=== PATIENT | male | born 1930 | race Caucasian/White ===

== ENCOUNTER 2017-01-12 11:55 | Inpatient (IN) | payer OTHER, BC ==
--- NOTE | 2017-01-12 12:50 | EDPHY ---
H & P Stated Complaint: blood diarrhea since 230am, not on blood thinners, not painful Time Seen by Provider: 01/12/17 12:44 HPI/ROS: CHIEF COMPLAINT: Rectal bleeding, dyspnea HISTORY OF PRESENT ILLNESS: The patient is an 86 y/o male, with a history of emphysema, complaining of rectal bleeding without pain onset around 03:00 this morning, about 10 hours ago. He woke with the urge to have a bowel movement and then had diarrhea that subsequently became bloody. Since then he's had multiple bouts of bright red blood per rectum. It is his impression that he might also be having diarrhea. He feels short of breath, intermittently dizzy, and dehydrated. He denies abdominal pain, chest pain. He does take Diclofenac, but he is unable to tell me why. No anticoagulants or other NSAIDs that he is aware of. He has never had a colonoscopy. REVIEW OF SYSTEMS:. A ten point review of systems was performed and is negative with the exception of the items mentioned in the HPI. - Personal History Current Tetanus/Diphtheria Vaccine: Yes Current Tetanus Diphtheria and Acellular Pertussis (TDAP): Yes - Medical/Surgical History PMH: PMH: 1. Hearing loss - uses hearing aids 2. Anxiety 3. Depression 4. Emphysema - home O2, neb 5. Hypertension 6. Right hip replacement 7. Cholecystectomy? Prior medical records reviewed including admission July 2016 for dyspnea. Hx Asthma: No Hx Chronic Respiratory Disease: Yes Hx Diabetes: No Hx Cardiac Disease: No Hx Renal Disease: No Hx Cirrhosis: No Hx Alcoholism: No Hx HIV/AIDS: No Hx Splenectomy or Spleen Trauma: No Other PMH: COPD. partial deafness - Social History Smoking Status: Former smoker Additional Social History: 2 oz of vodka every night. He lives independently. Daughter works nearby. Former smoker. - Physical Exam Exam: General Appearance: Alert. Vital signs reviewed. BP 99/73. Room air pulse ox 96%. Respiratory rate 16 at triage, higher than this at the time of my exam, around 20. Eyes: Pupils equal and round, no conjunctival injection, no discharge. Anicteric. ENT, Mouth: Mucous membranes are moist, no oropharyngeal erythema or edema. Hearing aids in place. Neck: No lymphadenopathy, supple. Trachea midline. Respiratory: Distant breath sounds with expiratory wheezes. Cardiovascular: Distant heart sounds. Regular rate and rhythm. Gastrointestinal: Abdomen is soft and nontender, no masses or organomegaly, bowel sounds normal. Rectal: Ernesto red blood on examining glove, nontender. No palpable masses. Skin: Warm and dry, no rashes on exposed skin, normal color. Healing ecchymosis on buttocks. Back: Nontender to palpation over the thoracolumbar spine. No CVAT. Extremities: No lower extremity edema, no calf tenderness or swelling. Neurological: Alert and oriented. Moving all four extremities easily and equally. Hard of hearing. Psychiatric: Normal affect. Constitutional: Initial Vital Signs Temperature (C) 36.5 C 01/12/17 12:00 Heart Rate 85 01/12/17 12:00 Respiratory Rate 16 01/12/17 12:00 Blood Pressure 99/73 L 01/12/17 12:00 O2 Sat (%) 96 01/12/17 12:00 O2 Delivery Mode Room Air Allergies/Adverse Reactions: No Known Allergies Allergy (Verified 08/26/16 05:16) Home Medications: Medication Instructions Recorded Acetamn/Diphenhydramine 500/25 1 each PO HS 08/26/16 [Tylenol PM (*)] Diclofenac Sodium [Voltaren-XR] 100 mg PO HS 08/26/16 Herbals/Supplements -Info Only 1 ea PO DAILY 08/26/16 Ipratropium/Albuterol [Duoneb (*)] 3 ml IH QID PRN 08/26/16 LORazepam [Ativan (*)] 1 mg PO BID PRN 08/26/16 guaiFENesin [Mucinex 600 MG (*)] 600 mg PO HS 08/26/16 Albuterol [Proventil Neb] 3 ml IH Q2HRS PRN #30 deyvial 08/29/16 Acetaminophen [Tylenol 325mg (*)] 325 mg PO DAILY 01/12/17 Doxazosin Mesylate [Cardura 1 MG 2 mg PO HS 01/12/17 (*)] Escitalopram Oxalate [Lexapro] 20 mg PO DAILY 01/12/17 predniSONE 5 mg PO BID 01/12/17 Medical Decision Making - Diagnostics Imaging Results: Imaging Impressions Chest X-Ray 01/12/17 14:13 Impression: Stable chest. Underlying hyperinflation compatible with COPD. No acute pneumonia or pneumothorax.. ED Course/Re-evaluation: 2 large bore IVs established. Labs drawn and occult stool obtained. Duo neb administered. H&H are low at 12 and 37. 1415: Spoke with hospitalist service. Dr. Tovar accepts admission. EKG, chest x-ray, and 125mg IV Solumedrol ordered. The initial systolic blood pressure was 90/9. Repeat blood pressure 120. 1443: Consulted with Dr. Godoy, GI. He will follow patient during admission. Decision about endoscopy/colonoscopy will be made after he sees the patient in consultation. He did not have any active GI bleeding while in the department. He did not have any diarrhea either. It is not clear to me whether this is bloody diarrhea. I think it is more likely to be lower GI bleeding. On reexamination he does not have abdominal pain. Serial hemoglobin and hematocrit will be obtained. He does not appear to be hemodynamically unstable. Differential Diagnosis: Shortness of breath including but not limited to pulmonary infectious process, COPD, asthma, pulmonary embolus and congestive heart failure. Lower GI bleeding including but not limited to diverticulosis, tumor, AVM, hemorrhoid and anal fissure. - Data Points Laboratory Results: Laboratory Results 01/12/17 13:00 01/12/17 13:00 01/12/17 01/12/17 01/12/17 13:00 13:00 13:00 WBC RBC Hgb Hct MCV MCH MCHC RDW Plt Count MPV Neut % (Auto) Lymph % (Auto) Haralson % (Auto) Eos % (Auto) Baso % (Auto) Nucleat RBC Rel Count Absolute Neuts (auto) Absolute Lymphs (auto) Absolute Monos (auto) Absolute Eos (auto) Absolute Basos (auto) Absolute Nucleated RBC Immature Gran % Immature Gran # PT 14.3 SEC SEC (12.0-15.0) INR 1.12 (0.83-1.16) APTT 26.3 SEC SEC (23.0-38.0) Sodium 137 mEq/L mEq/L (134-144) Potassium 4.8 mEq/L mEq/L (3.5-5.2) Chloride 104 mEq/L mEq/L (97-110) Carbon Dioxide 25 mEq/l mEq/l (22-31) Anion Gap 8 mEq/L mEq/L (8-16) BUN 20 mg/dL mg/dL (7-23) Creatinine 0.9 mg/dL mg/dL (0.7-1.3) Estimated GFR > 60 Glucose 138 mg/dL H mg/dL (70-100) Calcium 9.6 mg/dL mg/dL (8.5-10.4) Total Bilirubin 1.6 mg/dL H mg/dL (0.1-1.4) Conjugated Bilirubin 0.3 mg/dL mg/dL (0.0-0.5) Unconjugated Bilirubin 1.3 mg/dL H mg/dL (0.0-1.1) AST 27 IU/L IU/L (17-59) ALT 42 IU/L IU/L (21-72) Alkaline Phosphatase 75 IU/L IU/L (38-126) Total Protein 6.1 g/dL L g/dL (6.3-8.2) Albumin 3.5 g/dL g/dL (3.5-5.0) Stool Occult Bld Scrn POSITIVE H (NEGATIVE) 01/12/17 13:00 WBC 12.91 10^3/uL H 10^3/uL (3.80-9.50) RBC 3.65 10^6/uL L 10^6/uL (4.40-6.38) Hgb 12.3 g/dL L g/dL (13.7-17.5) Hct 36.7 % L % (40.0-51.0) MCV 100.5 fL H fL (81.5-99.8) MCH 33.7 pg pg (27.9-34.1) MCHC 33.5 g/dL g/dL (32.4-36.7) RDW 12.7 % % (11.5-15.2) Plt Count 239 10^3/uL 10^3/uL (150-400) MPV 10.1 fL fL (8.7-11.7) Neut % (Auto) 73.0 % % (39.3-74.2) Lymph % (Auto) 17.3 % % (15.0-45.0) Haralson % (Auto) 7.4 % % (4.5-13.0) Eos % (Auto) 0.9 % % (0.6-7.6) Baso % (Auto) 0.5 % % (0.3-1.7) Nucleat RBC Rel Count 0.0 % % (0.0-0.2) Absolute Neuts (auto) 9.43 10^3/uL H 10^3/uL (1.70-6.50) Absolute Lymphs (auto) 2.23 10^3/uL 10^3/uL (1.00-3.00) Absolute Monos (auto) 0.95 10^3/uL H 10^3/uL (0.30-0.80) Absolute Eos (auto) 0.12 10^3/uL 10^3/uL (0.03-0.40) Absolute Basos (auto) 0.07 10^3/uL 10^3/uL (0.02-0.10) Absolute Nucleated RBC 0.00 10^3/uL 10^3/uL (0-0.01) Immature Gran % 0.9 % % (0.0-1.1) Immature Gran # 0.11 10^3/uL H 10^3/uL (0.00-0.10) PT INR APTT Sodium Potassium Chloride Carbon Dioxide Anion Gap BUN Creatinine Estimated GFR Glucose Calcium Total Bilirubin Conjugated Bilirubin Unconjugated Bilirubin AST ALT Alkaline Phosphatase Total Protein Albumin Stool Occult Bld Scrn Medications Given: Discontinued Medications Albuterol/Ipratropium (Duoneb) 3 ml IH EDNOW ONE Stop: 01/12/17 13:12 Last Admin: 01/12/17 13:38 Dose: 3 ml Methylprednisolone Sodium Succinate (Solu-Medrol) 125 mg IVP EDNOW ONE Stop: 01/12/17 14:14 Last Admin: 01/12/17 14:25 Dose: 125 mg Departure - Departure Disposition: [facility] Inpatient Acute Clinical Impression: Lower GI bleed, COPD exacerbation Condition: Fair Report Scribed for: Renee Fernandez Report Scribed by: Shawanda Pritchett Date of Report: 01/12/17 Time of Report: 12:51 Physician Review and Approval Statement: 01/12/17 12:50 Portions of this note were transcribed by the medical administrative. I, Dr. Renee Fernandez, personally performed the history, physical exam, and medical decision- making; and confirmed the accuracy of the information in the transcribed note.
[2017-01-12] MEDS ORDERED: IPRATROPIUM/ALBUTEROL 3 ML DEYVIAL IH ONE (13:11)
[2017-01-12 13:22] LABS: % IMMATURE GRANULYOCYTES 0.9 % (0.0-1.1); ABSOLUTE IMMATURE GRANULOCYTES 0.11 10^3/uL (0.00-0.10); ADD DIFF? NO; ADD MORPH? NO; ADD SCAN? NO; ATYPICAL LYMPHOCYTE FLAG 0 (0-99); FRAGMENT RBC FLAG 0 (0-99); HEMATOCRIT 36.7 % (40.0-51.0); HEMOGLOBIN 12.3 g/dL (13.7-17.5); LEFT SHIFT FLG 30 (0-99); LIPEMIA HEMOLYSIS FLAG 80 (0-99); MEAN CELL HEMOGLOBIN 33.7 pg (27.9-34.1); MEAN CELL HEMOGLOBIN CONCENTR. 33.5 g/dL (32.4-36.7); MEAN CELL VOLUME 100.5 fL (81.5-99.8); MEAN PLATELET VOLUME 10.1 fL (8.7-11.7); PLATELET CLUMPS FLAG 0 (0-99); PLATELET COUNT 239 10^3/uL (150-400); RED BLOOD CELL COUNT 3.65 10^6/uL (4.40-6.38); RED CELL DISTRIBUTION WIDTH 12.7 % (11.5-15.2)
[2017-01-12 13:26] LABS: ALANINE AMINOTRANSFERASE 42 IU/L (21-72); ALBUMIN 3.5 g/dL (3.5-5.0); ALKALINE PHOSPHATASE 75 IU/L (38-126); ANION GAP 8 mEq/L (8-16); ASPARTATE AMINOTRANSFERASE 27 IU/L (17-59); BILIRUBIN,TOTAL 1.6 mg/dL (0.1-1.4); BILIRUBIN-CONJUGATED 0.3 mg/dL (0.0-0.5); BILIRUBIN-UNCONJUGATED 1.3 mg/dL (0.0-1.1); CALCIUM 9.6 mg/dL (8.5-10.4); CARBON DIOXIDE 25 mEq/l (22-31); CHLORIDE 104 mEq/L (97-110); CREATININE 0.9 mg/dL (0.7-1.3); GLOMERULAR FILTRATION RATE > 60; GLUCOSE 138 mg/dL (70-100); POTASSIUM 4.8 mEq/L (3.5-5.2); SODIUM 137 mEq/L (134-144); TOTAL PROTEIN 6.1 g/dL (6.3-8.2)
[2017-01-12 13:32] LABS: APTT 26.3 SEC (23.0-38.0); INR 1.12 (0.83-1.16); PROTIME(PATIENT) 14.3 SEC (12.0-15.0)
[2017-01-12] MEDS ORDERED: methylPREDNISolone SOD SUCC 125 MG/2 ML VIAL IVP ONE (14:13)
[2017-01-12] MEDS ORDERED: ACETAMINOPHEN 325 MG TAB PO PRN (14:42)
[2017-01-12] MEDS ORDERED: ONDANSETRON DISINTEGRATING 4 MG TAB PO PRN (14:42)
[2017-01-12] MEDS ORDERED: ONDANSETRON 4 MG/2 ML VIAL IVP PRN (14:42)
[2017-01-12] MEDS ORDERED: ALBUTEROL 3 ML DEYVIAL IH PRN (14:42)
[2017-01-12] MEDS ORDERED: NS 1,000 ML IV SCH (14:45)
[2017-01-12] MEDS ORDERED: FAMOTIDINE 20 MG/NACL 50 ML IV ONE (15:59)
[2017-01-12] MEDS: IPRATROPIUM/ALBUTEROL 3 ML DEYVIAL IH SCH ×2 (16:10→21:11)
--- NOTE | 2017-01-12 16:29 | GHP ---
[f rep st] HISTORY AND PHYSICAL DATE OF ADMISSION: 01/12/2017 CHIEF COMPLAINT: Bright red blood per rectum. HISTORY OF PRESENT ILLNESS: An 86-year-old male with a history of COPD and hypertension who present s with complaints of sudden onset of bright red blood per rectum, beginning at 2:30 in the morning t he day of presentation. Patient reports being in his normal state of health the day proceeding with normal bowel habits, normal appetite. Denies any abdominal pain, nausea, vomiting, dizziness, ches t pain, or lightheadedness. The patient does report chronic shortness of breath that seems to impro ve after 10:00 a.m. in the morning and then worsen in the later afternoon. He denies any acute feve rs, chills, coughing, has been using his prescribed medications normally. The patient reports a pre ceding history several years ago of abdominal discomfort and bloating for which he sought care in [facility] outpatient clinic and had marked improvement. Since that time reports having normal stooling with out blood or dark black stools. Denies any episodes of hematemesis or symptoms of reflux. PAST MEDICAL HISTORY: 1. COPD, non-oxygen dependent. 2. Depression. 3. Hypertension. SOCIAL HISTORY: Patient occasionally drinks alcohol. Smokes cigars. FAMILY HISTORY: Negative for any emphysema or lung disease. ADVANCED DIRECTIVES: The patient wishes to be do not resuscitate. His daughter would be his medica l decision maker. REVIEW OF SYSTEMS: A 10-point review of systems is negative with the exception of that reported in the HPI. PHYSICAL EXAMINATION: VITAL SIGNS: Blood pressure 120/84, heart rate 71, respiratory rate 20, satu rating 96% on room air, 36.5. GENERAL: This is a pleasant elderly male who appears to have some ta chypnea on examination. HEENT: Patient does not have icterus. Mucous membranes appear moist. CAR DIAC: He is regular rate and rhythm. A quiet systolic murmur is appreciated. PULMONARY: Patient is tachypneic, but does not have any wheezing, appears to have good air movement even in his bilater al lower lobes. GASTROINTESTINAL: Positive bowel sounds. The abdomen is soft and nontender in all 4 quadrants. MUSCULOSKELETAL: Patient has no lower extremity edema. PSYCHIATRIC: He is pleasant and cooperative on interview and examination. NEUROLOGIC: Alert and oriented x3. DATA: White count 12.9, which appears baseline; hematocrit 36.7, baseline 44-47; platelet count of 239. INR is 1.12, creatinine of 0.9. Occult positive in the emergency department. Chest x-ray, wh ich I personally reviewed and interpreted, shows hyperinflation. No clear infiltrates or edema. ASSESSMENT AND PLAN: An 86-year-old male presenting with bright red blood per rectum. 1. Acute presumed lower gastrointestinal bleed. The patient presents with acute symptoms of bright red blood per rectum. Hemoglobin is slightly lower than recent baselines and vital signs are juliano l at presentation. Consulted with Dr. Godoy from Gastroenterology. Patient has a history of failin g colonoscopy prep in the past. We will approach prep more cautiously by splitting the prep over course of 2 days and plan for a colonoscopy on 01/14, if successful in clearing his bowels. Will monitor his H and H closely during that time. The patient appears euvolemic on my examination. Nabor l obviously hold his antihypertensives and hemodynamically active medications until we ascertain how quickly he is bleeding. 2. Chronic obstructive pulmonary disease. Patient appears tachypneic on examination; however, his pulmonary exam is reassuring as well as his oxygen saturations. Will transiently increase his stero ids to 40 mg p.o. daily from his chronic 5 mg and treat with inhaled nebulizers. Notice the patient is on a benzodiazepine intermittently. Will continue these as I suspect some of his tachypnea may be related to anxiety and his perception of dyspnea. Will not initiate antibiotics at this time as there is no indication to do so. 3. Hypertension. Patient's blood pressures are well controlled at this time. It would be more tana gerous to administer an antihypertensive at this time in the setting of acute bleed. We will hold t hese and monitor. 4. Prophylaxis is contraindicated in the setting of acute gastrointestinal bleed. Will prophylax w ith SCDs. 5. Diet. The patient will be on clear liquids and will begin his colonoscopy prep this evening. W ill remain on clear liquids and complete his prep tomorrow evening. We will, at that point, make hi m n.p.o., if successful for a colonoscopy on 01/14. DISPOSITION: I expect greater than 2 midnights to complete prepping and optimization of his pulmona ry status. I have discussed the case with the emergency room physician as well as Dr. Godoy. We wi ll triage the patient to the medical-surgical floor for respiratory care and monitoring of his acute lower GI bleed. /[id number]/MODL
[2017-01-12] MEDS: guaiFENesin 600 MG TAB.ER PO SCH (20:01)
[2017-01-12] MEDS: LORazepam 1 MG TAB PO PRN (20:01)
[2017-01-12] MEDS ORDERED: IPRATROPIUM/ALBUTEROL 3 ML DEYVIAL ONE (20:44)
[2017-01-12 20:46] LABS: HEMOGLOBIN 11.3 g/dL (13.7-17.5)
[2017-01-12] MEDS ORDERED: GOLYTELY 4000 ML BTL PO ONE (22:10)
[2017-01-13 04:39] LABS: % IMMATURE GRANULYOCYTES 0.4 % (0.0-1.1); ABSOLUTE IMMATURE GRANULOCYTES 0.05 10^3/uL (0.00-0.10); ADD DIFF? NO; ADD MORPH? NO; ADD SCAN? NO; ATYPICAL LYMPHOCYTE FLAG 0 (0-99); FRAGMENT RBC FLAG 0 (0-99); HEMATOCRIT 33.1 % (40.0-51.0); HEMOGLOBIN 11.2 g/dL (13.7-17.5); LEFT SHIFT FLG 10 (0-99); LIPEMIA HEMOLYSIS FLAG 90 (0-99); MEAN CELL HEMOGLOBIN 34.1 pg (27.9-34.1); MEAN CELL HEMOGLOBIN CONCENTR. 33.8 g/dL (32.4-36.7); MEAN CELL VOLUME 100.9 fL (81.5-99.8); MEAN PLATELET VOLUME 10.2 fL (8.7-11.7); PLATELET CLUMPS FLAG 0 (0-99); PLATELET COUNT 238 10^3/uL (150-400); RED BLOOD CELL COUNT 3.28 10^6/uL (4.40-6.38); RED CELL DISTRIBUTION WIDTH 12.7 % (11.5-15.2)
[2017-01-13 05:35] LABS: ANION GAP 8 mEq/L (8-16); CALCIUM 9.6 mg/dL (8.5-10.4); CARBON DIOXIDE 22 mEq/l (22-31); CHLORIDE 104 mEq/L (97-110); CREATININE 0.8 mg/dL (0.7-1.3); GLOMERULAR FILTRATION RATE > 60; GLUCOSE 153 mg/dL (70-100); POTASSIUM 4.6 mEq/L (3.5-5.2); SODIUM 134 mEq/L (134-144)
[2017-01-13] MEDS: IPRATROPIUM/ALBUTEROL 3 ML DEYVIAL IH SCH ×4 (05:39→21:26)
--- NOTE | 2017-01-13 07:11 | GCON ---
[f rep st] CONSULTATION DATE OF CONSULTATION: 01/12/2017 REQUESTING PHYSICIAN: Berna Tovar MD REASON FOR CONSULTATION: Hematochezia, diarrhea. Dear Dr. Tovar: Thank you very kindly for asking me to evaluate this patient for a chief complaint of bloody diarrhe a. He is a pleasant 86-year-old gentleman who has been seen by our practice in July of 2015 for abdominal pain, gas, and bloating, at which time he had an upper endoscopy performed by Dr. Tadeo which was overall unremarkable and was encouraged to have a colonoscopy for evaluation of his sympt oms at which time he refused because of his inability to do the bowel cleanse, who presents with 1 d ay of bloody diarrhea. The patient was in his usual state of health at home when about 2:30 in the morning he woke up to have a bowel movement which he said initially was somewhat hard and then dark and then became more loose and ultimately bloody, describing fresh bright red blood. He has not had another episode since being in the emergency room. His initial hematocrit on presentation is 36.7 with a normal INR. He does not take any blood thinners. He does have underlying emphysema and has been more short of breath since the onset of the bleeding. He denies any abdominal pain with the bl eeding. He had previously been more bloated and distended back in 2014 when he was evaluated but is not describing any of those problems currently. He denies any NSAIDs. He has had no melena. He d enies any chest pain or heartburn, no dysphagia, and no vomiting. I am asked to assist with further evaluation and management. PAST MEDICAL HISTORY: Significant for: 1. COPD. 2. Anxiety. 3. He is on prednisone chronically. 4. He has had a history of nephrolithiasis, rectus diastasis deformity. PAST SURGICAL HISTORY: Cholecystectomy for gallbladder stones, a right hip surgery, and a kidney st one retrieval by cystoscopy. MEDICATIONS: On admission include albuterol nebulizers, Atrovent nebulizers, guaifenesin 600 mg b.i .d., Ativan 1 mg b.i.d. p.r.n. anxiety, Zofran as needed for nausea, prednisone 40 mg daily. ALLERGIES: None known. SOCIAL HISTORY: The patient spends a lot of his time in [place]. He is . No tobacco, no alc ohol, no substance abuse. FAMILY HISTORY: Negative for colon cancer. REVIEW OF SYSTEMS: CONSTITUTIONAL: He has been feeling somewhat weak, tired, and with some malaise . No fever, no night sweats, no unintentional weight loss. HEENT: Denies headache, visual disturb ances, difficulty swallowing, or sore throat. PULMONARY: Reports worsening shortness of breath wit hout cough. There is some wheezing. CARDIOVASCULAR: He has no difficulty lying flat because of hi s breathing. He does have exertional dyspnea. No chest pain. No palpitations. No syncope. GI: Basically positive for diarrhea with bright red blood that began at 2:30 per the HPI but is otherwis e negative. RHEUMATOLOGIC: He says his back and joints chronically hurt including mostly his right hip but that is not new or different. PSYCHIATRIC: He has chronic anxiety which is well managed. No insomnia. No depression. DERMATOLOGIC: No rash, jaundice, or pruritus. NEUROLOGIC: No pares thesias or focal motor weakness. No syncope. No falls. PHYSICAL EXAM: VITAL SIGNS: Blood pressure is 120/84, heart rate is 71, oxygen saturation is 96% o n room air. Temperature is 36.5. GENERAL: Mildly anxious appearing male but in no acute distress. Alert and able to provide his own history. HEENT: Normocephalic, atraumatic. Oropharynx clear. Mucous membranes are moist. Sclerae anicteric. No jugular venous distention, thyromegaly, or wise tid bruit. PULMONARY: Prolonged expiratory phase. He does have pursed lip breathing. No rales or pleural effusion noted as demonstrated by equal fremitus, normal percussion. CARDIOVASCULAR: Regu lar rate and rhythm. Systolic murmur 2/6, possible S3 gallop. No pedal edema. GI: Rectus diastas is deformity. ABDOMEN: Soft, nondistended. Normal bowel sounds. No organomegaly. No ascites. N o tenderness, rebound, or guarding. DERMATOLOGIC: No jaundice or rash. No cyanosis or pallor. NE UROLOGIC: Alert to person, place, and time. Cranial nerves grossly normal. Motor nonfocal. Gait is not assessed. No asterixis. PSYCHIATRIC: Normal mood and affect. Normal speech. Seems a bit anxious. LABORATORY DATA: Database includes: White blood count 12.9, hematocrit 36.7, platelets 239. Sodiu m 137, potassium 4.8, chloride 104, bicarbonate 25, BUN 20, creatinine 0.9, glucose 138, calcium 9.6 , total bilirubin 1.6 with a direct of 0.3, AST 27, ALT 42, alkaline phosphatase 75, albumin 3.5, to betty protein 6.1. INR is 1.12 with a PT of 14.3. IMAGING: Includes chest x-ray, 2 view, on January 12, 2017, that shows underlying hyperinflation of the lungs consistent with emphysema but no other acute findings. There is some scoliosis demonstrated. IMPRESSION: 1. Diarrhea. 2. Hematochezia. 3. Mild anemia. 4. Chronic obstructive pulmonary disease. RECOMMENDATIONS: 1. Clear liquid diet. 2. Monitor H and H. 3. I believe the patient would be safe for a floor bed at the current time. 4. We have discussed a colonoscopy as the most diagnostically helpful test. The patient a bit relu ctant as he is unclear of whether he will be willing to take the bowel cleanse which in July of 2015 was his primary motivation not to have a colonoscopy but now that he is bleeding, he seems more motivated and will try. 5. I would recommend splitting the bowel cleanse in half and doing 2 L of GoLYTELY over 4 hours ton ight and again 2 L of GoLYTELY over 4 hours tomorrow and as soon as he is able to complete the bowel cleanse successfully, we will perform a colonoscopy with Anesthesia assistance due to his emphysema and other comorbidities. 6. I do not believe he needs an upper endoscopy as this was performed in May of 2015 and was normal, and the description of his bleeding seems mostly colonic. 7. Further recommendations to follow. /[id number]/MODL
[2017-01-13] MEDS: predniSONE 20 MG TAB PO SCH (08:58)
[2017-01-13] MEDS ORDERED: MAGNESIUM CITRATE 300 ML BOTTLE PO ONE ×2 (12:34→17:45)
--- NOTE | 2017-01-13 12:39 | SOAPPROG ---
SOAP Progress Note Assessment/Plan: Assessment: 1. Diarrhea 2. Hematochezia 3. Anemia secondary to blood loss 4. COPD Plan: 1. Magnesium citrate 300ml po once 2. Finish golytely today 3. NPO after 9am 4. Colonoscopy with MAC tomorrow at 1330 5. May need additional mag citrate tomorrow AM if not cleansed 6. Monitor H/H 01/13/17 12:38 Subjective: CC: Diarrhea continues Still bloated with some mild RLQ discomfort. Stool not clear with oral golytely cleanse. H/H stable @ 33. Objective: Vital Signs Temp Pulse Resp BP Pulse Ox 36.8 C 101 H 2 L 172/88 H 94 01/13/17 11:40 01/13/17 11:40 01/13/17 11:40 01/13/17 11:40 01/13/17 11:40 Microbiology 01/13/17 09:25 Gastrointestinal Tract Panel (PCR) - Final Stool No Organism Detected Laboratory Results 01/13/17 04:24 01/13/17 04:24 01/12/17 01/13/17 01/14/17 05:59 05:59 05:59 Intake Total 750 Output Total 300 Balance 750 -300 PT 14.3 SEC (12.0-15.0) 01/12/17 13:00 INR 1.12 (0.83-1.16) 01/12/17 13:00 Physical Exam - Physical Exam General Appearance: WD/WN, no apparent distress EENT: normal ENT inspection Neck: supple Respiratory: decreased breath sounds, prolonged expiration, No crackles, No rales Cardiac/Chest: regular rate, rhythm, systolic murmur Abdomen: normal bowel sounds, non-tender, soft, No distended, No guarding, No rebound, No mass, No hepatomegaly, No splenomegaly, No ascites Skin: No jaundice Extremities: non-tender, No pedal edema Neuro/Psych: alert, normal mood/affect, No motor weakness ICD10 Worksheet Patient Problems: Problems Problem Status Onset COPD exacerbation Acute Lower GI bleed Acute Chronic Disease Mgmt/Transitional Care Acute Chronic obstructive pulmonary disease with acute exacerbation Acute Primary osteoarthritis of right hip Acute
--- NOTE | 2017-01-13 14:58 | HOSPPROG ---
Hospitalist Progress Note Assessment/Plan: 86-year-old with a history of COPD is admitted with bright red blood per rectum. He has had intermittent abdominal pain in the past but has refused previous colonoscopy. Does admit to a bloody bowel movement this morning. # Bright red blood per rectum. Minimal pain on history and exam. This is most consistent with diverticular bleed but needs further evaluation. * Discussed with Dr. Godoy * continue prep for colonoscopy * colonoscopy tomorrow per Dr. Godoy\ * follow serial H&H given ongoing bleeding although it seems to be better than yesterday. # COPD with chronic respiratory failure and shortness of breath. Patient says he is stable. # hypertension # hard of hearing, difficult to communicate with needs his hearing aid in place # depression Subjective: patient new to me and chart reviewed. Did have a bloody bowel movement this morning but none since then. No dizziness lightheadedness no chest pain palpitations he has chronic shortness of breath which is unchanged Objective: Vital Signs Temp Pulse Resp BP Pulse Ox 36.8 C 101 H 2 L 172/88 H 94 01/13/17 11:40 01/13/17 11:40 01/13/17 11:40 01/13/17 11:40 01/13/17 11:40 Microbiology 01/13/17 09:25 Gastrointestinal Tract Panel (PCR) - Final Stool No Organism Detected Laboratory Results 01/13/17 04:24 01/13/17 04:24 01/12/17 01/13/17 01/14/17 05:59 05:59 05:59 Intake Total 750 Output Total 700 Balance 750 -700 PT 14.3 SEC (12.0-15.0) 01/12/17 13:00 INR 1.12 (0.83-1.16) 01/12/17 13:00 - Physical Exam Constitutional: no apparent distress, not in pain, chronically ill appearing Eyes: PERRL, anicteric sclera, EOMI Ears, Nose, Mouth, Throat: moist mucous membranes, hard of hearing Cardiovascular: regular rate and rhythym, no murmur, rub, or gallop Respiratory: no respiratory distress, reduced air movement Gastrointestinal: normoactive bowel sounds, soft, non-tender abdomen, no palpable masses Genitourinary: no bladder fullness Skin: warm, No normal color ( slightly pale) Musculoskeletal: generalized weakness Neurologic: AAOx3 Psychiatric: interacting appropriately, not anxious, not encephalopathic Lymph, Heme, Immunologic: no cervical LAD ICD10 Worksheet Patient Problems: Problems Problem Status Onset Primary osteoarthritis of right hip Acute Chronic obstructive pulmonary disease with acute exacerbation Acute Chronic Disease Mgmt/Transitional Care Acute Lower GI bleed Acute COPD exacerbation Acute
[2017-01-13] MEDS: LORazepam 1 MG TAB PO PRN (20:37)
[2017-01-13] MEDS: guaiFENesin 600 MG TAB.ER PO SCH (20:38)
[2017-01-13] MEDS: ACETAMN/DIPHENHYDRAMINE 500/25MG TAB PO SCH (20:38)
[2017-01-13 21:01] LABS: HEMATOCRIT 31.7 % (40.0-51.0)
[2017-01-14] MEDS: IPRATROPIUM/ALBUTEROL 3 ML DEYVIAL IH SCH ×4 (05:21→22:09)
[2017-01-14 05:27] LABS: HEMATOCRIT 27.5 % (40.0-51.0); HEMOGLOBIN 9.5 g/dL (13.7-17.5)
[2017-01-14] MEDS ORDERED: MAGNESIUM CITRATE 300 ML BOTTLE PO ONE (08:45)
--- NOTE | 2017-01-14 08:48 | SOAPPROG ---
SOAP Progress Note Assessment/Plan: Assessment: 1. Diarrhea 2. Hematochezia 3. Anemia secondary to blood loss 4. COPD Plan: 1. Magnesium citrate 300ml po once again this AM 2. NPO after prep this AM 3. Check BMP after prep to insure K+ ok 4. Colonoscopy with MAC at 1330. 5. Coordinated prep and labs and NPO with RN 01/14/17 08:46 Subjective: CC: Hematochezia No further bleeding today. Hct down. Breathing ok. No abdominal pain. Objective: Vital Signs Temp Pulse Resp BP Pulse Ox 36.8 C 79 16 104/57 L 96 01/14/17 08:00 01/14/17 08:00 01/14/17 08:00 01/14/17 08:00 01/14/17 08:00 Microbiology 01/13/17 09:25 Gastrointestinal Tract Panel (PCR) - Final Stool No Organism Detected Laboratory Results 01/14/17 04:26 01/13/17 04:24 01/13/17 01/14/17 01/15/17 05:59 05:59 05:59 Intake Total 750 Output Total 1900 Balance 750 -1900 PT 14.3 SEC (12.0-15.0) 01/12/17 13:00 INR 1.12 (0.83-1.16) 01/12/17 13:00 Physical Exam - Physical Exam General Appearance: mild distress EENT: normal ENT inspection Neck: supple Respiratory: decreased breath sounds, rhonchi, prolonged inspiration Cardiac/Chest: regular rate, rhythm Abdomen: normal bowel sounds, non-tender, soft, No distended, No guarding, No rebound, No ascites ICD10 Worksheet Patient Problems: Problems Problem Status Onset COPD exacerbation Acute Lower GI bleed Acute Chronic Disease [facility]/Transitional Care Acute Chronic obstructive pulmonary disease with acute exacerbation Acute Primary osteoarthritis of right hip Acute
[2017-01-14] MEDS: predniSONE 20 MG TAB PO SCH (10:44)
[2017-01-14 11:44] LABS: ANION GAP 7 mEq/L (8-16); CALCIUM 8.9 mg/dL (8.5-10.4); CARBON DIOXIDE 29 mEq/l (22-31); CHLORIDE 102 mEq/L (97-110); CREATININE 0.8 mg/dL (0.7-1.3); GLOMERULAR FILTRATION RATE > 60; GLUCOSE 84 mg/dL (70-100); POTASSIUM 3.6 mEq/L (3.5-5.2); SODIUM 138 mEq/L (134-144)
[2017-01-14] MEDS ORDERED: PROPOFOL 200 MG/20 ML VIAL ONE ×2 (11:53→14:06)
--- NOTE | 2017-01-14 14:25 | HOSPPROG ---
Hospitalist Progress Note Assessment/Plan: 86-year-old with a history of COPD is admitted with bright red blood per rectum. He has had intermittent abdominal pain in the past but has refused previous colonoscopy. Does admit to a bloody bowel movement this morning. # Bright red blood per rectum- no abdominal pain on history and exam- suspect diverticular bleed - continue prep for colonoscopy - magnesium citrate this am - Plan for colonoscopy today with anesthesia assist # anemia 2/2 acute blood loss - HCT 36-> 27 since admission - choloscopy today # COPD with chronic respiratory failure and shortness of breath- CXR ( personally reviewed and interpreted) no acute infiltrates oxygen saturations 96% on 2L - work on weaning daytime oxygen - continue home prednisone - cont inhaled meds # hypertension- controlled # hard of hearing- using amplification device # depression # proph - lovenox contraindicated # diet - NPO # dispo - > 2MN for diagnostic work up I have discussed the case iw GI - plan for colonoscopy today after Mag citrate Subjective: bloody stools continuing overnight Objective: Vital Signs Temp Pulse Resp BP Pulse Ox 36.6 C 63 14 129/75 H 100 01/14/17 11:58 01/14/17 11:58 01/14/17 11:58 01/14/17 11:58 01/14/17 11:58 Microbiology 01/13/17 09:25 Gastrointestinal Tract Panel (PCR) - Final Stool No Organism Detected Laboratory Results 01/14/17 04:26 01/14/17 04:26 01/13/17 01/14/17 01/15/17 05:59 05:59 05:59 Intake Total 750 Output Total 1900 Balance 750 -1900 PT 14.3 SEC (12.0-15.0) 01/12/17 13:00 INR 1.12 (0.83-1.16) 01/12/17 13:00 - Physical Exam Constitutional: no apparent distress Eyes: anicteric sclera Ears, Nose, Mouth, Throat: moist mucous membranes Cardiovascular: regular rate and rhythym, systolic murmur Respiratory: no respiratory distress, No expiratory wheeze Gastrointestinal: normoactive bowel sounds, soft, non-tender abdomen Genitourinary: no bladder fullness Skin: warm Musculoskeletal: No asymmetric calves Neurologic: AAOx3 Psychiatric: interacting appropriately, not anxious Lymph, Heme, Immunologic: no cervical LAD ICD10 Worksheet Patient Problems: Problems Problem Status Onset COPD exacerbation Acute Lower GI bleed Acute Chronic Disease Mg[facility]/Transitional Care Acute Chronic obstructive pulmonary disease with acute exacerbation Acute Primary osteoarthritis of right hip Acute
[2017-01-14] MEDS: guaiFENesin 600 MG TAB.ER PO SCH (20:29)
[2017-01-14] MEDS: ACETAMN/DIPHENHYDRAMINE 500/25MG TAB PO SCH (20:29)
[2017-01-14] MEDS: LORazepam 1 MG TAB PO PRN (20:29)
--- NOTE | 2017-01-15 01:47 | GPN ---
[f rep st] PROCEDURE NOTE DATE OF PROCEDURE: 01/14/2017 PROCEDURE: Colonoscopy. ANESTHESIA: Monitored anesthesia care. INDICATIONS: 1. Hematochezia. 2. Anemia secondary to blood loss. The patient was consented for colonoscopy with monitored anesthesia care after the risks and benefit s of the procedure and the sedation were discussed in detail. All questions were answered and infor med consent was obtained. The patient is competent to make his own medical decisions. Procedure mo nitoring is continuous per anesthesia protocol. COMPLICATIONS: None. ESTIMATED BLOOD LOSS: None. Procedure time-out was performed for the patient in the endoscopy suite after he was brought into [facility]. Time-out was confirmed by the endoscopy staff, anesthesiologist, and myself. ANESTHESIOLOGIST: Dc Benedict MD. INSTRUMENT AND CONTROL SERVICE PERSON: Sanket Godoy MD. ENDOSCOPY STAFF: Truman. PROCEDURE DESCRIPTION: The patient was placed into the left lateral decubitus position. Propofol w as administered by IV until he was comfortable. A digital rectal exam was performed. The Olympus e ndoscope was placed into the anal canal and ultimately advanced to the terminal ilium. The cecum wa s identified by the confluence of the taenia coli, appendiceal orifice, and ileocecal valve. All mu cosal surfaces were examined in their entirety including a retroflexed view. The quality of the bow el cleanse was good. Digital rectal exam revealed small external hemorrhoids. The sphincter tone was slightly diminished . The prostate was somewhat firm and enlarged but without focal nodule or mass. The colon exhibite d diverticular disease most prominent in the sigmoid and descending colon. There were some small di verticula in the ascending colon. There was a single diverticulum in the middescending colon with a small erosion, congestion, erythema and some stigmata of recent bleeding but without active bleedin g. The diverticulum was washed extensively with fluid. No bleeding could be precipitated, and no v isible vessel was seen. No intervention was provided. Retroflexed view of the rectum revealed hemo rrhoids. The terminal ilium, of note, was normal. IMPRESSION: 1. Normal terminal ilium. 2. Giang diverticulosis with disease most prominent in the descending and sigmoid colon. 3. A single diverticulum in the middescending colon with stigmata of recent bleeding supporting a d iagnosis of possibly diverticular hemorrhage as the cause of his lower gastrointestinal bleed. 4. Enlarged prostate with some firmness consistent with benign prostatic hypertrophy. The exam was otherwise unremarkable. RECOMMENDATIONS: 1. Return to hospital [facility]. 2. Advance diet as tolerated. 3. Check a.m. CBC. 4. Avoid all NSAIDs. 5. No further colonoscopy screening or surveillance will be needed given his age. 6. In general, most diverticular bleeds will resolve spontaneously without intervention. If he has further hemorrhage, I would recommend a tagged red blood cell scan to confirm the possible impressi on of a left-sided diverticular bleed to help with management. 7. A flexible sigmoidoscopy can be performed to further interrogate bleeding after a tagged red huber l scan to see if therapeutically, more can be done endoscopically. Thank you very kindly for allowing me to be involved in the care for this patient. Further recommen dations to follow. /[id number]/MODL
[2017-01-15] MEDS: IPRATROPIUM/ALBUTEROL 3 ML DEYVIAL IH SCH ×4 (06:20→21:59)
[2017-01-15] MEDS: predniSONE 20 MG TAB PO SCH (09:46)
[2017-01-15 13:11] LABS: HEMATOCRIT 30.4 % (40.0-51.0); HEMOGLOBIN 10.4 g/dL (13.7-17.5); MEAN CELL HEMOGLOBIN CONCENTR. 34.2 g/dL (32.4-36.7); MEAN CELL VOLUME 102.4 fL (81.5-99.8); RED BLOOD CELL COUNT 2.97 10^6/uL (4.40-6.38); RED CELL DISTRIBUTION WIDTH 12.8 % (11.5-15.2)
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
[2017-01-15] MEDS: ACETAMN/DIPHENHYDRAMINE 500/25MG TAB PO SCH (20:20)
[2017-01-15] MEDS: guaiFENesin 600 MG TAB.ER PO SCH (20:20)
[2017-01-15] MEDS: LORazepam 1 MG TAB PO PRN (20:22)
[2017-01-16 05:16] LABS: HEMATOCRIT 27.6 % (40.0-51.0); HEMOGLOBIN 9.5 g/dL (13.7-17.5)
[2017-01-16] MEDS: IPRATROPIUM/ALBUTEROL 3 ML DEYVIAL IH SCH ×3 (06:02→17:11)
[2017-01-16 07:46] VITALS: BP 148/71; TEMP 97.9
[2017-01-16] MEDS: predniSONE 20 MG TAB PO SCH (08:52)
[2017-01-16 10:48] VITALS: PULSE 70; RESP 18; O2SAT 94
--- NOTE | 2017-01-16 15:57 | GDS ---
[f rep st] DISCHARGE SUMMARY DISCHARGE DIAGNOSES: 1. Acute lower gastrointestinal bleed. 2. Gastrointestinal bleed secondary to diverticula. 3. Anemia secondary to acute blood loss. 4. Chronic obstructive pulmonary disease. 5. Hypertension. 6. Hearing loss. 7. Depression. HISTORY OF PRESENT ILLNESS: An 86-year-old male, with a history of COPD admitted with bright red bl ood per rectum. Consultative services for this patient include Gastroenterology. PROCEDURES: On 01/14/2017 patient underwent a colonoscopy showing diffuse diverticula with divertic ulitis, stigmata of acute bleeding. HOSPITAL COURSE BY ISSUE: 1. Acute lower GI bleed. Patient was fully prepped for colonoscopy and did have actively bleeding diverticula noted on colonoscopy. He was monitored until hemoglobin and hematocrit stabilized, with a hemoglobin of 9 and hematocrit of 27 on the day of disposition. He has been over 24 hours withou t bloody stools at this time and is hemodynamically stable. He has been instructed to follow in the outpatient setting with his primary care provider for ongoing management, and to return to the hosp ital with any recurrent hematochezia. 2. Anemia secondary to acute blood loss. As above, patient led to hemoglobin of 9, he is hemodynam ically stable, did not receive transfusion. He can follow up post disposition by his PCP. MEDICATIONS: Medications at the time of disposition, didier sanchez medication reconciliation prin jones on 01/16/2017. FOLLOWUP APPOINTMENTS: Include with his PCP in the next 2-4 weeks for general disposition followup. PENDING STUDIES: At the time of this dictation are none. TIME SPENT: I spent greater than 30 minutes in the planning and coordination of this discharge. /[id number]/MODL
== END 2017-01-16 17:00 | disposition home or self-care (01) | DRG 378 ==
LOC: F3E 16:59
PROVIDERS: ADMIT Hospitalist; ATTEND Hospitalist
PROC: 0DJD8ZZ Inspection of Lower Intestinal Tract, Via Natural or Artificial Opening Endoscopic (ICD-10-PCS; principal; 2017-01-14 13:30)
DX: K57.33 Diverticulitis of large intestine without perforation or abscess with bleeding (principal); D62 Acute posthemorrhagic anemia; J43.9 Emphysema, unspecified; J96.10 Chronic respiratory failure, unspecified whether with hypoxia or hypercapnia; K64.4 Residual hemorrhoidal skin tags; I10 Essential (primary) hypertension; H91.90 Unspecified hearing loss, unspecified ear; Z97.4 Presence of external hearing-aid; Z87.442 Personal history of urinary calculi; Z87.891 Personal history of nicotine dependence; Z96.641 Presence of right artificial hip joint; Z66 Do not resuscitate
CPT/HCPCS: 96374; 97161-GP; 97165-GO; 97530-GO; G8978-GP-CI; G8979-GP-CI; G8980-GP-CI; G8987-GO-CI; G8988-GO-CI; J2704

== ENCOUNTER → 2018-01-18 | Outpatient (CLI) | payer OTHER, BC | LOC: FIMAGING 13:08 → EDSTATUS 13:10 | PROVIDERS: ATTEND Family Medicine | DX: M41.86 Other forms of scoliosis, lumbar region (principal); M25.78 Osteophyte, vertebrae ==

== ENCOUNTER 2018-10-07 12:12 | Emergency (ER) | payer OTHER ==
[2018-10-07 12:23] VITALS: BP 174/99
--- NOTE | 2018-10-07 12:43 | EDPHY ---
H & P Stated Complaint: skin tears Time Seen by Provider: 10/07/18 12:42 HPI/ROS: HPI: This is a 88-year-old male who presents with Chief Complaint: Skin tears status post fall Location: Right elbow, left hand Quality: Injury Duration: Prior to arrival Signs and Symptoms: No bleeding, no radiation, no numbness, no weakness, no tingling, no incontinence, no decreased range of motion, no swelling, no pain, no fever Timing: Acute Severity: Mild Context: Patient has a history of COPD, partial deafness, uses cane to aid ambulation presents with accidentally tripping while getting up to use the restroom without his cane and falling against the wall and hitting his right elbow and left hand against the wall. He reports that he "scratched" his right forearm and left hand. He reports that his right elbow started to bleed and he applied direct pressure to get it stop. Denies LOC/head injury/neck pain /dizziness/nausea/vomiting/amnesia. Unsure of tetanus status. Does not take any blood thinners. Modifying Factors: Direct pressure. Comment: ROS: A comprehensive 10 system review of systems is otherwise negative aside from elements mentioned in the history of present illness. MEDICAL/SURGICAL/SOCIAL HISTORY: Medical history: COPD, partial deafness Surgical history: Denies Social history: Former smoker. Retired. Disabled. CONSTITUTIONAL: Polite and cooperative elderly white male, awake and alert, no obvious distress HEENT: Atraumatic and normocephalic, PERRL, EOMI. no globe entrapment, no raccoon eyes. no Lamar signs.Tympanic membranes clear. No tympanic membrane rupture. Nares patent; no septal hematoma. Oropharynx clear, no exudate and moist pink mucosa. No malocclusion. no dental trauma. Airway patent. No lymphadenopathy. NECK: supple, no midline tenderness, flexion 45 degrees, extension 45 degrees, right and left lateral flexion 45 degrees. No meningismus. Cardiovascular: Normal S1/S2, regular rate, regular rhythm, without murmur rub or gallop. PULMONARY/CHEST: Symmetrical and nontender. no crepitus. Clear to auscultation bilaterally. Good air movement. No accessory muscle usage. ABDOMEN: Soft, nondistended, nontender, no ecchymosis, no rebound, no guarding , no peritoneal signs, no masses or organomegaly. No CVAT. PELVIC: no pain with rocking; bilateral hips flexion 125 degrees, extension 30 degrees, with no pain internal rotation and no pain external rotation. BACK: No midline tenderness, no paraspinous spasm, deep tendon reflexes 2/2, no pain with straight leg raise EXTREMITIES: 2/2 pulses, right forearm shows 4 in x 1 in skin tear/laceration with no active bleeding; left hand between thumb and index finger web space shows superficial abrasion measuring approximately 0.5 in with no active bleeding; no deformities, no clubbing, no cyanosis or edema. NEUROLOGICAL: no focal neuro deficits. GCS 15. SKIN: Warm and dry, thin, no erythema. no rash. Good capillary refill. Source: Patient Exam Limitations: No limitations - Personal History Current Tetanus/Diphtheria Vaccine: Unsure Current Tetanus Diphtheria and Acellular Pertussis (TDAP): Unsure - Medical/Surgical History Hx Asthma: No Hx Chronic Respiratory Disease: Yes Hx Diabetes: No Hx Cardiac Disease: No Hx Renal Disease: No Hx Cirrhosis: No Hx Alcoholism: No Hx HIV/AIDS: No Hx Splenectomy or Spleen Trauma: No Other PMH: COPD. partial deafness - Social History Smoking Status: Former smoker Constitutional: Initial Vital Signs Temperature (C) 36.6 C 10/07/18 12:22 Heart Rate 91 10/07/18 12:22 Respiratory Rate 16 10/07/18 12:22 Blood Pressure 174/99 H 10/07/18 12:22 O2 Sat (%) 95 10/07/18 12:22 O2 Delivery Mode Room Air Allergies/Adverse Reactions: No Known Allergies Allergy (Verified 08/26/16 05:16) Home Medications: Medication Instructions Recorded Acetamn/Diphenhydramine 500/25 1 each PO HS 08/26/16 [Tylenol PM (*)] Diclofenac Sodium [Voltaren-XR] 100 mg PO HS 08/26/16 Herbals/Supplements -Info Only 1 ea PO DAILY 08/26/16 Ipratropium/Albuterol [Duoneb (*)] 3 ml IH QID PRN 08/26/16 LORazepam [Ativan (*)] 1 mg PO BID PRN 08/26/16 Albuterol [Proventil Neb] 3 ml IH Q2HRS PRN #30 deyvial 08/29/16 Acetaminophen [Tylenol 325mg (*)] 325 mg PO DAILY 01/12/17 Doxazosin Mesylate [Cardura 1 MG 2 mg PO HS 01/12/17 (*)] Escitalopram Oxalate [Lexapro] 20 mg PO DAILY 01/12/17 predniSONE 5 mg PO BID 01/12/17 Medical Decision Making Procedures: Procedure: Laceration repair. Verbal consent was obtained from the patient. The 4 in x 1 in, deep, simple laceration on the right forearm was anesthetized in the usual fashion using 5 mL of 1% lidocaine with epinephrine The wound was irrigated, draped and explored to its base with a gloved finger. There were no deep structures involved. No tendon injury was identified. The wound was repaired with #5, 4- 0 Vicryl horizontal buried sutures. Clean sterile dressing applied. The procedure was performed by myself. ED Course/Re-evaluation: Fall was accidental in nature. No signs of syncope/CVA/ACS Tetanus booster ordered Copiously irrigated Based on nexus protocol, No indication for head CT imaging. Skin tear on left hand was dressed with Steri-Strips and nonocclusive dressing. Right forearm laceration was repaired with horizontal buried sutures and clean sterile dressing applied. Verbal and written wound care instructions provided. This patient was seen under the supervision of my secondary supervising physician. I evaluated care for this patient independently. Discussed this patient with Dr. Aragon who did not see the patient. Differential Diagnosis: Differential diagnosis includes but is not limited to contusion, abrasion, nerve injury, tendon injury, fracture. - Data Points Medications Given: Discontinued Medications Diphtheria/Tetanus/Acell Pertussis (Boostrix) 0.5 ml IM .ONCE ONE Stop: 10/07/18 12:48 Last Admin: 10/07/18 12:56 Dose: 0.5 ml Departure - Departure Disposition: Home, Routine, Self-Care Clinical Impression: Skin tear of left hand without complication Qualifiers: Encounter type: initial encounter Qualified Code(s): S61.412A - Laceration without foreign body of left hand, initial encounter Laceration of right forearm without complication Qualifiers: Encounter type: initial encounter Qualified Code(s): S51.811A - Laceration without foreign body of right forearm, initial encounter Condition: Good Instructions: Laceration (ED), Skin Tear (ED), Care For Your Absorbable Stitches (ED) Additional Instructions: Keep the dressing dry and in place for 48 hours. After 48 hours, you may remove the dressing; wash the site daily with mild soap and water; then pat dry. Apply topical antibiotic ointment daily and clean sterile dressing until fully healed. Take Tylenol 650 mg every 4 hours and/or Ibuprofen 600 mg every 8 hours with food as needed for pain. Today the laceration on the right forearm was closed with absorbable sutures. These will slowly dissolve over time and do not need to be removed. Please follow-up with primary care provider in 3-4 days for wound check. Return to the ER immediately if you experience redness, red streaks, have fevers /chills, flu like symptoms, limited range of motion, or any other symptoms that concern you. Referrals: Damaris Freitas MD [Primary Care Provider] - As per Instructions
[2018-10-07] MEDS ORDERED: TDAP ADULT 0.5 ML INJ (BOOSTRIX) IM ONE (12:47)
== END 2018-10-07 13:41 | disposition home or self-care (01) ==
PROC: 0HQDXZZ Repair Right Lower Arm Skin, External Approach (ICD-10-PCS; principal; 2018-10-07)
DX: S51.811A Laceration without foreign body of right forearm, initial encounter (principal); S60.512A Abrasion of left hand, initial encounter; J44.9 Chronic obstructive pulmonary disease, unspecified; H91.90 Unspecified hearing loss, unspecified ear; Z23 Encounter for immunization; W01.0XXA Fall on same level from slipping, tripping and stumbling without subsequent striking against object, initial encounter; Y92.89 Other specified places as the place of occurrence of the external cause; Y99.9 Unspecified external cause status; Y93.9 Activity, unspecified; Z87.891 Personal history of nicotine dependence